=== PATIENT | female | born 1950 | race African-American/Black ===

== ENCOUNTER 2018-09-13 12:03 | Emergency (ER) | payer OTHER, MEDICARE ==
[~2018-09-13] VITALS: Ht 172.7 cm; Wt 63.0 kg
[2018-09-13 12:18] VITALS: BP_SYST 155
[2018-09-13] MEDS ORDERED: LIDOCAINE 1% 10 MG/ML, 20 ML MDV INJ ONE (12:45)
[2018-09-13 14:25] VITALS: BP_SYST 155
== END 2018-09-13 14:25 | disposition home or self-care (01) ==
LOC: SED 12:03
DX: S01.112A Laceration without foreign body of left eyelid and periocular area, initial encounter (principal); R03.0 Elevated blood-pressure reading, without diagnosis of hypertension; Z86.79 Personal history of other diseases of the circulatory system; W01.0XXA Fall on same level from slipping, tripping and stumbling without subsequent striking against object, initial encounter; Y93.89 Activity, other specified; Y92.89 Other specified places as the place of occurrence of the external cause; Y99.8 Other external cause status
CPT/HCPCS: 12011; 70480; 99284; J2001

== ENCOUNTER 2018-09-15 11:28 | Emergency (ER) | payer OTHER, MEDICARE ==
[~2018-09-15] VITALS: Ht 172.7 cm; Wt 63.5 kg
[2018-09-15 11:32] VITALS: BP_SYST 164
[2018-09-15 12:00] VITALS: BP_SYST 164
== END 2018-09-15 12:00 | disposition home or self-care (01) ==
LOC: SED 11:38
DX: S01.112D Laceration without foreign body of left eyelid and periocular area, subsequent encounter (principal); W45.8XXD Other foreign body or object entering through skin, subsequent encounter
CPT/HCPCS: 99281

== ENCOUNTER 2018-09-19 10:03 | Emergency (ER) | payer OTHER, MEDICARE ==
[~2018-09-19] VITALS: Ht 167.6 cm; Wt 59.0 kg
[2018-09-19 10:03] VITALS: BP_SYST 175
[2018-09-19 10:59] VITALS: BP_SYST 175
== END 2018-09-19 10:59 | disposition home or self-care (01) ==
LOC: SED 10:03
DX: H10.9 Unspecified conjunctivitis (principal); I10 Essential (primary) hypertension; Z98.890 Other specified postprocedural states
CPT/HCPCS: 99283

== ENCOUNTER 2018-09-22 10:23 | Emergency (ER) | payer OTHER, MEDICARE ==
[~2018-09-22] VITALS: Ht 172.7 cm; Wt 63.5 kg
[2018-09-22 10:31] VITALS: BP_SYST 152
== END 2018-09-22 11:30 | disposition home or self-care (01) ==
LOC: SED 10:23
DX: S01.112D Laceration without foreign body of left eyelid and periocular area, subsequent encounter (principal); I10 Essential (primary) hypertension; Z86.79 Personal history of other diseases of the circulatory system; W45.8XXD Other foreign body or object entering through skin, subsequent encounter
CPT/HCPCS: 99281

== ENCOUNTER 2019-02-11 10:32 | Emergency (ER) | payer OTHER, BC ==
[~2019-02-11] VITALS: Ht 172.7 cm; Wt 63.5 kg
[2019-02-11 10:32] VITALS: BP_SYST 156
[2019-02-11] MEDS ORDERED: KETOROLAC TROMETHAMINE 30 MG VIAL IM ONE (11:45)
[2019-02-11] MEDS ORDERED: HYDROcodone/ACETAMIN 5-325 MG TAB (NORCO/ VICODIN) PO ONE (13:15)
[2019-02-11 13:26] VITALS: BP_SYST 130
== END 2019-02-11 13:26 | disposition home or self-care (01) ==
LOC: SED 10:32
DX: S43.401A Unspecified sprain of right shoulder joint, initial encounter (principal); I10 Essential (primary) hypertension; Z86.79 Personal history of other diseases of the circulatory system; X58.XXXA Exposure to other specified factors, initial encounter; Y93.89 Activity, other specified; Y92.89 Other specified places as the place of occurrence of the external cause; Y99.8 Other external cause status
CPT/HCPCS: 71045; 73030; 96372; 99283; J1885

== ENCOUNTER 2023-05-19 10:19 | Emergency (ER) | payer OTHER, BC ==
[~2023-05-19] VITALS: Ht 167.6 cm; Wt 61.7 kg
[2023-05-19 10:39] VITALS: BP_SYST 154; PULSE 66; RESP 18; TEMP 98.3; O2SAT 98
[2023-05-19] MEDS ORDERED: LIDOCAINE 2%, 20 ML MDV INJ ONE (11:45)
== END 2023-05-19 12:26 | disposition home or self-care (01) ==
LOC: SED 10:19
DX: R22.32 Localized swelling, mass and lump, left upper limb (principal); I10 Essential (primary) hypertension; Z79.899 Other long term (current) drug therapy
CPT/HCPCS: 99284